=== PATIENT | male | born 1970 | race Caucasian/White ===

== ENCOUNTER 2016-12-22 20:55 | Emergency (ER) | payer OTHER ==
[~2016-12-22] VITALS: Ht 182.9 cm; Wt 95.2 kg
[2016-12-22] MEDS ORDERED: CYMBALTA60 MG PO (21:07)
[2016-12-22] MEDS ORDERED: PRILOSEC OTC20 MG PO (21:07)
[2016-12-22] MEDS ORDERED: KEFLEX500 MG PO (21:57)
--- NOTE | 2016-12-23 19:12 | EKG ---
[facility] [address] [place] [address] Signed Normal sinus rhythm Normal ECG No previous ECGs available Confirmed by CHINA SALOMON MD ([id number] on 12/23/2016 7:12:18 PM Electronically Signed By: CHINA SALOMON MD 12/23/161911 PATIENT NAME: RACHELL BEACH SANDRA Electrocardiogram DATE OF : 68 PHYSICIAN: CHINA SALOMON MD REPORT #: [id number] REPORT IS CONFIDENTIAL AND NOT TO BE RELEASED WITHOUT AUTHORIZATION
== END 2016-12-22 22:20 | disposition home or self-care (01) ==
LOC: ED 20:55
DX: J01.90 Acute sinusitis, unspecified (principal); F32.9 Major depressive disorder, single episode, unspecified; K21.9 Gastro-esophageal reflux disease without esophagitis; Z88.2 Allergy status to sulfonamides; Z88.1 Allergy status to other antibiotic agents; Z79.899 Other long term (current) drug therapy
CPT/HCPCS: 71010; 80053; 84484; 85025; 93005; 93010; 99284